=== PATIENT | male | born 1960 | race Two or more races ===

== ENCOUNTER 2019-05-28 06:57 | Emergency (ER) | payer BC ==
[~2019-05-28] VITALS: Ht 167.6 cm; Wt 70.8 kg
[2019-05-28 07:10] VITALS: Ht 167.6 cm; Wt 70.8 kg
[2019-05-28 08:01] LABS: CALCIUM 8.7 mg/dL (8.5-10.1); CARBON DIOXIDE 24.1 mmol/L (21-32); CHLORIDE SERUM 105 mmol/L (98-107); GFR1 > 60 mL/min; GLUCOSE SERUM 145 mg/dL (74-106); POTASSIUM SERUM 3.8 mmol/L (3.5-5.1); SODIUM SERUM 140 mmol/L (136-145)
[2019-05-28 08:04] LABS: BASOPHIL % 0.2 % (0-2); PLATELET COUNT 165 x10^3mcL (130-400); RED CELL DISTRIBUTION WIDTH 13.4 % (11.5-14.5)
[2019-05-28 08:06] LABS: ALBUMIN 3.8 g/dL (3.4-5.0); ALKALINE PHOSPHATASE 93 U/L (46-116); ALT/SGPT 36 U/L (16-63); AST/SGOT 26 U/L (15-37); BILIRUBIN TOTAL 0.99 mg/dL (0.20-1.00); LIPASE 273 IU/L (73-393); TOTAL PROTEIN, SERUM 7.1 g/dL (6.4-8.2)
[2019-05-28 09:54] VITALS: BP 128/66
== END 2019-05-28 09:54 | disposition home or self-care (01) ==
LOC: ED 06:57
PROVIDERS: Emergency Medicine
DX: H81.399 Other peripheral vertigo, unspecified ear (principal); R11.0 Nausea
CPT/HCPCS: J2765; J7030; J8597; Q0162

== ENCOUNTER 2019-07-18 18:02 | Emergency (ER) | payer OTHER ==
[~2019-07-18] VITALS: Ht 167.6 cm; Wt 72.6 kg
[2019-07-18 18:15] VITALS: Ht 167.6 cm; Wt 72.6 kg
[2019-07-18 20:35] LABS: PLATELET COUNT 194 x10^3mcL (130-400); RED CELL DISTRIBUTION WIDTH 13.4 % (11.5-14.5)
[2019-07-18 20:39] LABS: BASOPHIL % 0 % (0-2)
[2019-07-18 20:46] LABS: CALCIUM 8.3 mg/dL (8.5-10.1); CARBON DIOXIDE 29.7 mmol/L (21-32); CHLORIDE SERUM 107 mmol/L (98-107); GFR1 > 60 mL/min; GLUCOSE SERUM 125 mg/dL (74-106); SODIUM SERUM 144 mmol/L (136-145)
[2019-07-18 20:50] LABS: ALBUMIN 3.8 g/dL (3.4-5.0); ALKALINE PHOSPHATASE 108 U/L (46-116); ALT/SGPT 33 U/L (16-63); AMYLASE 49 U/L (25-115); AST/SGOT 21 U/L (15-37); BILIRUBIN TOTAL 0.39 mg/dL (0.20-1.00); LIPASE 246 IU/L (73-393); TOTAL PROTEIN, SERUM 7.1 g/dL (6.4-8.2)
[2019-07-18 22:16] VITALS: BP 112/63
== END 2019-07-18 22:16 | disposition home or self-care (01) ==
LOC: ED 18:02
PROVIDERS: Emergency Medicine
DX: H81.11 Benign paroxysmal vertigo, right ear (principal); H66.91 Otitis media, unspecified, right ear
CPT/HCPCS: J0696; J1885; J2405; J2765; J7030; J7060; J8597; Q0092